=== PATIENT | female | born 1975 | race Caucasian/White ===

== ENCOUNTER 2017-08-07 18:21 | Emergency (ER) | payer BC ==
[~2017-08-07] VITALS: Ht 160 cm; Wt 158.8 kg
[~2017-08-07 18:21] MED LIST: AMOCLA875 PO; Ativan1 MG SL; Bystolic10 MG PO; CYCL10 PO; DULO30 PO; GABA300 PO; INDERAL XL120 MG PO; MELO7.5 PO; Motion Sickness25 M1 PO; Omeprazole20 M1 PO; Prednisone20 MG PO; Valium5 MG PO; Zofran Odt4 MG SL
[2017-08-07] MEDS ORDERED: Adipex-P37.5 MG PO (18:57)
[2017-08-07] MEDS ORDERED: Desyrel50 MG PO (18:58)
[2017-08-07 19:11] LABS: BASOPHILS ABSOLUTE AUTO 0.06 K/mm3 (0.00-0.23); BASOPHILS PERCENT AUTO 0 % (0-2); EOSINOPHILS PERCENT AUTO 1 % (0-6); Hematocrit 39.6 % (33.0-51.0); Hemoglobin 13.6 g/dL (11.5-16.0); IMMATURE GRAN ABSOLUTE AUTO 0.06 K/mm3 (0.00-0.10); IMMATURE GRAN PERCENT AUTO 0 % (0-1); LYMPHOCYTES ABSOLUTE AUTO 2.16 K/mm3 (0.84-5.20); LYMPHOCYTES PERCENT AUTO 13 % (21-46); MONOCYTES ABSOLUTE AUTO 0.53 K/mm3 (0.16-1.47); MONOCYTES PERCENT AUTO 3 % (4-13); Mean Corpuscular HGB 32.6 pg (26.0-34.0); Mean Corpuscular HGB Conc 34.3 g/dL (31.5-36.5); Mean Corpuscular Volume 95 fL (80-100); Mean Platelet Volume 9.8 fL (9.1-12.4); NEUTROPHILS ABSOLUTE AUTO 13.35 K/mm3 (1.96-9.15); NEUTROPHILS PERCENT AUTO 82 % (41-73); Platelet Count 274 K/mm3 (150-400); RDW Coefficient Variation 13.1 % (11.7-14.2); RDW Standard Deviation 45.7 fL (35.1-46.3); Red Blood Cell Count 4.17 M/mm3 (3.80-5.20); White Blood Cell Count 16.26 K/mm3 (4.00-11.30)
[2017-08-07 19:25] LABS: Source, Urine Clean Catch
[2017-08-07 19:31] LABS: Alanine Aminotransfer (ALT/SGP 21 U/L (12-78); Albumin, Blood 3.6 g/dL (3.4-5.0); Albumin/Globulin Ratio 1.1 (0.8-1.8); Alk Phos 121 U/L (50-136); Anion Gap 6 mmol/L (6-16); Aspartate Aminotrans (AST/SGOT 15 U/L (12-37); Bilirubin, Total 0.2 mg/dL (0.1-1.0); Blood Urea Nitrogen 10 mg/dL (8-24); Bun/Creatinine Ratio 15.6 (12.0-20.0); CO2, Blood 26 mmol/L (21-32); Calcium, Blood 8.5 mg/dL (8.5-10.1); Chloride, Blood 109 mmol/L (98-108); Creatinine, Blood 0.64 mg/dL (0.40-1.00); Globulin, Blood 3.4 g/dL (2.2-4.0); Glomerular Filtration Rate >60 (60-); Glucose, Blood 113 mg/dL (70-99); Potassium, Blood 3.9 mmol/L (3.5-5.5); Sodium, Blood 141 mmol/L (136-145); Troponin I <0.015 ng/mL (0.000-0.040)
[2017-08-07 19:37] LABS: Bilirubin, Urine Neg (Neg); Blood, Urine Neg (Neg); Glucose Qualitative, Urine Neg (Neg); Ketones, Urine Neg (Neg); Leukocyte Esterase, Urine 1+ (Neg); Nitrite, Urine Pos (Neg); Protein, Urine Neg (Neg); Urobilinogen, Urine NORM (Normal)
[2017-08-07 19:45] LABS: Appearance, Urine Clear (Clear); Color, Urine Yellow (P-Yellow)
[2017-08-07 19:47] LABS: Red Blood Cells, Urine 0-2 /hpf (0-2); Squamous Epithelial Cells Few /hpf (Few)
[2017-08-07 19:48] LABS: Bacteria Many /hpf
[2017-08-07] MEDS ORDERED: Zofran Odt4 MG PO (20:31)
[2017-08-07] MEDS ORDERED: CEPH500 PO (20:31)
== END 2017-08-07 20:49 | disposition home or self-care (01) ==
LOC: ER 18:21
PROVIDERS: Emergency Medicine
DX: N30.90 Cystitis, unspecified without hematuria (principal); R07.9 Chest pain, unspecified; Z79.899 Other long term (current) drug therapy
CPT/HCPCS: 36415; 71046; 71260; 80053; 81001; 81025; 83690; 84484; 85025; 85379; 87077; 87086; 87186; 93005; 93010; 99284; Q9967

== ENCOUNTER 2021-01-09 00:50 | Emergency (ER) | payer BC ==
[~2021-01-09] VITALS: Ht 157.5 cm; Wt 67.1 kg
[~2021-01-09 00:50] MED LIST changes: +Adipex-P37.5 MG PO; +CEPH500 PO; +Desyrel50 MG PO; +Zofran Odt4 MG PO
[2021-01-09 01:59] LABS: BASOPHILS ABSOLUTE AUTO 0.06 K/mm3 (0.00-0.23); BASOPHILS PERCENT AUTO 1 % (0-2); EOSINOPHILS ABSOLUTE AUTO 0.16 K/mm3 (0.00-0.68); EOSINOPHILS PERCENT AUTO 2 % (0-6); Hematocrit 39.2 % (33.0-51.0); Hemoglobin 13.4 g/dL (11.5-16.0); IMMATURE GRAN ABSOLUTE AUTO 0.02 K/mm3 (0.00-0.10); IMMATURE GRAN PERCENT AUTO 0 % (0-1); LYMPHOCYTES ABSOLUTE AUTO 1.19 K/mm3 (0.84-5.20); LYMPHOCYTES PERCENT AUTO 16 % (21-46); MONOCYTES PERCENT AUTO 8 % (4-13); Mean Corpuscular HGB 31.8 pg (26.0-34.0); Mean Corpuscular HGB Conc 34.2 g/dL (31.5-36.5); Mean Corpuscular Volume 93 fL (80-100); Mean Platelet Volume 10.8 fL (9.1-12.4); NEUTROPHILS ABSOLUTE AUTO 5.54 K/mm3 (1.96-9.15); NEUTROPHILS PERCENT AUTO 73 % (41-73); Platelet Count 210 K/mm3 (150-400); RDW Coefficient Variation 13.1 % (11.7-14.2); Red Blood Cell Count 4.21 M/mm3 (3.80-5.20); White Blood Cell Count 7.57 K/mm3 (4.00-11.30)
[2021-01-09 02:16] LABS: Alanine Aminotransfer (ALT/SGP 34 U/L (12-78); Albumin, Blood 3.1 g/dL (3.4-5.0); Albumin/Globulin Ratio 0.8 (0.8-1.8); Alk Phos 126 U/L (50-136); Anion Gap 13 mmol/L (6-16); Aspartate Aminotrans (AST/SGOT 23 U/L (12-37); Bilirubin, Total 0.9 mg/dL (0.1-1.0); Blood Urea Nitrogen 6 mg/dL (8-24); Bun/Creatinine Ratio 8.8 (12.0-20.0); CO2, Blood 24 mmol/L (21-32); Chloride, Blood 104 mmol/L (98-108); Creatinine, Blood 0.68 mg/dL (0.40-1.00); Globulin, Blood 3.7 g/dL (2.2-4.0); Glomerular Filtration Rate >60 (60-); Glucose, Blood 91 mg/dL (70-99); Sodium, Blood 141 mmol/L (136-145); Total Protein, Blood 6.8 g/dL (6.4-8.2)
[2021-01-09] MEDS ORDERED: ONDA4ODT MM (04:40)
== END 2021-01-09 05:21 | disposition home or self-care (01) ==
LOC: ER 00:50
PROVIDERS: Student in an Organized Health Care Education/Training Program
DX: K29.70 Gastritis, unspecified, without bleeding (principal); K21.9 Gastro-esophageal reflux disease without esophagitis; Z79.899 Other long term (current) drug therapy
CPT/HCPCS: 80053; 83690; 85025; 96374; 96375; 99283-25; A9270; C9113; J2765; J3480; J7030

== ENCOUNTER 2021-01-27 13:32 | Day surgery (SDC) | payer BC ==
[~2021-01-27 13:32] MED LIST changes: +ONDA4ODT MM
[2021-01-27] MEDS ORDERED: PANT20 PO (14:19)
[2021-01-27] MEDS ORDERED: METO10 PO (14:19)
[2021-01-27] MEDS ORDERED: IRON18 MG PO (14:21)
[2021-01-27] MEDS ORDERED: MULVITA PO (14:21)
[2021-01-27] MEDS ORDERED: B12-FOLIC ACID1 EACH PO (14:21)
[2021-01-27] MEDS ORDERED: OXYC1L PO (14:21)
[2021-01-27] MEDS ORDERED: Vitamin D1000 UNI1 PO (14:22)
== END 2021-01-27 22:40 | disposition home or self-care (01) ==
LOC: ATC 13:32
DX: E86.0 Dehydration (principal); K91.2 Postsurgical malabsorption, not elsewhere classified; K31.1 Adult hypertrophic pyloric stenosis
CPT/HCPCS: 96360; 96361; J7121

== ENCOUNTER 2021-01-30 04:09 | Day surgery (SDC) | payer BC ==
[~2021-01-30 04:09] MED LIST changes: +B12-FOLIC ACID1 EACH PO; +IRON18 MG PO; +METO10 PO; +MULVITA PO; +OXYC1L PO; +PANT20 PO; +Vitamin D1000 UNI1 PO
== END 2021-01-30 12:28 | disposition home or self-care (01) ==
LOC: ATC 04:09
DX: E86.0 Dehydration (principal); K91.2 Postsurgical malabsorption, not elsewhere classified; K31.1 Adult hypertrophic pyloric stenosis
CPT/HCPCS: 96360; 96361; J7121

== ENCOUNTER 2021-02-05 03:10 | Day surgery (SDC) | payer BC | END 2021-02-05 11:58 | disposition home or self-care (01) | LOC: ATC 03:10 | DX: E86.0 Dehydration (principal); K91.2 Postsurgical malabsorption, not elsewhere classified; K31.1 Adult hypertrophic pyloric stenosis | CPT/HCPCS: 96360; 96361; J7121 ==

== ENCOUNTER 2021-02-10 00:29 | Day surgery (SDC) | payer BC | END 2021-02-10 17:30 | disposition home or self-care (01) | LOC: ATC 00:29 | DX: E86.0 Dehydration (principal); K91.2 Postsurgical malabsorption, not elsewhere classified; K31.1 Adult hypertrophic pyloric stenosis | CPT/HCPCS: 96360; 96361; J7121 ==

== ENCOUNTER 2021-02-13 03:48 | Day surgery (SDC) | payer BC ==
--- NOTE | 2021-02-13 16:01 | NUR ---
Pt did not show for her appointment in the [facility] this morning.
== END 2021-02-13 22:44 | disposition home or self-care (01) ==
LOC: ATC 03:48
DX: E86.0 Dehydration (principal); K91.2 Postsurgical malabsorption, not elsewhere classified; K31.1 Adult hypertrophic pyloric stenosis
CPT/HCPCS: J7121

== ENCOUNTER 2022-07-06 20:02 | Emergency (ER) | payer BC ==
[~2022-07-06] VITALS: Ht 157.5 cm; Wt 81.7 kg
[2022-07-06 20:32] LABS: BASOPHILS ABSOLUTE AUTO 0.05 K/mm3 (0.00-0.23); BASOPHILS PERCENT AUTO 0 % (0-2); EOSINOPHILS ABSOLUTE AUTO 0.01 K/mm3 (0.00-0.68); EOSINOPHILS PERCENT AUTO 0 % (0-6); Hematocrit 38.7 % (33.0-51.0); Hemoglobin 13.5 g/dL (11.5-16.0); IMMATURE GRAN ABSOLUTE AUTO 0.05 K/mm3 (0.00-0.10); IMMATURE GRAN PERCENT AUTO 0 % (0-1); LYMPHOCYTES ABSOLUTE AUTO 0.92 K/mm3 (0.84-5.20); LYMPHOCYTES PERCENT AUTO 7 % (21-46); MONOCYTES PERCENT AUTO 5 % (4-13); Mean Corpuscular HGB 32.5 pg (26.0-34.0); Mean Corpuscular HGB Conc 34.9 g/dL (31.5-36.5); Mean Corpuscular Volume 93 fL (80-100); Mean Platelet Volume 9.8 fL (9.1-12.4); NEUTROPHILS ABSOLUTE AUTO 11.64 K/mm3 (1.96-9.15); NEUTROPHILS PERCENT AUTO 87 % (41-73); Platelet Count 180 K/mm3 (150-400); RDW Coefficient Variation 12.6 % (11.7-14.2); Red Blood Cell Count 4.16 M/mm3 (3.80-5.20); White Blood Cell Count 13.37 K/mm3 (4.00-11.30)
[2022-07-06 20:50] LABS: Albumin, Blood 3.7 g/dL (3.4-5.0); Albumin/Globulin Ratio 1.1 (0.8-1.8); Bilirubin, Total 0.7 mg/dL (0.1-1.0); Bun/Creatinine Ratio 20.8 (12.0-20.0); Calcium, Blood 8.5 mg/dL (8.5-10.1); Creatinine, Blood 0.63 mg/dL (0.40-1.00); Globulin, Blood 3.5 g/dL (2.2-4.0); Potassium, Blood 3.7 mmol/L (3.5-5.5); Total Protein, Blood 7.2 g/dL (6.4-8.2)
[2022-07-06] MEDS ORDERED: DOXE25 PO (21:59)
[2022-07-06] MEDS ORDERED: MELO7.5 PO (22:00)
[2022-07-06] MEDS ORDERED: NEURONTIN300 MG PO (22:00)
== END 2022-07-07 00:52 | disposition home or self-care (01) ==
LOC: ER 20:02
PROVIDERS: Emergency Medicine
DX: U07.1 COVID-19 (principal); E86.0 Dehydration; Z88.8 Allergy status to other drugs, medicaments and biological substances; Z79.899 Other long term (current) drug therapy; Z86.69 Personal history of other diseases of the nervous system and sense organs
CPT/HCPCS: 36415; 71046; 80053; 84484; 85025; 93005; 93010; J1100; J1885; J7030